=== PATIENT | male | born 1965 | race Caucasian/White ===

== ENCOUNTER 2017-05-04 09:37 | Emergency (ER) | payer SELFPAY ==
[~2017-05-04] VITALS: Ht 177.8 cm; Wt 84.0 kg
[2017-05-04] MEDS ORDERED: KETOROLAC 60MG/2ML VIAL IM ONE (10:15)
[2017-05-04 11:15] VITALS: BP 132/82
== END 2017-05-04 11:26 | disposition home or self-care (01) ==
LOC: ER 10:21
DX: M25.511 Pain in right shoulder (principal); M54.5 Low back pain; V49.9XXA Car occupant (driver) (passenger) injured in unspecified traffic accident, initial encounter; Y93.89 Activity, other specified; Y92.89 Other specified places as the place of occurrence of the external cause; Y99.8 Other external cause status
CPT/HCPCS: 73030; 96372; 99284; J1885; Z7610; A4565

== ENCOUNTER 2018-05-21 23:22 | Emergency (ER) | payer BC ==
[~2018-05-21] VITALS: Ht 177.8 cm; Wt 80.0 kg
[2018-05-22 04:17] VITALS: BP 140/87
== END 2018-05-22 04:05 | disposition home or self-care (01) ==
LOC: ER 23:22
DX: B02.9 Zoster without complications (principal)
CPT/HCPCS: 99283

== ENCOUNTER 2018-05-26 08:50 | Emergency (ER) | payer BC ==
[~2018-05-26] VITALS: Ht 160 cm; Wt 81.0 kg
[2018-05-26 13:26] VITALS: BP 132/76
== END 2018-05-26 13:32 | disposition home or self-care (01) ==
LOC: ER 08:50
DX: S41.111D Laceration without foreign body of right upper arm, subsequent encounter (principal); S61.411D Laceration without foreign body of right hand, subsequent encounter; X58.XXXD Exposure to other specified factors, subsequent encounter
CPT/HCPCS: 99281

== ENCOUNTER 2018-08-23 10:53 | Emergency (ER) | payer BC ==
[~2018-08-23] VITALS: Ht 177.8 cm; Wt 75.0 kg
[2018-08-23] MEDS ORDERED: ONDANSETRON HCL 4MG/2ML INJ IV STA (13:10)
[2018-08-23] MEDS ORDERED: SODIUM CHLORIDE 0.9% 1,000 ML IV ONE (13:10)
[2018-08-23] MEDS ORDERED: FAMOTIDINE 20MG/2ML VIAL IV STA (13:10)
[2018-08-23 14:09] LABS: CLARITY URINE CLEAR (CLEAR); COLOR URINE DARK YELLOW (YELLOW); KETONES URINE TRACE (NEGATIVE); LEUKOCYTE ESTERASE URINE NEGATIVE (NEGATIVE); NITRITE URINE NEGATIVE (NEGATIVE); OCCULT BLOOD URINE NEGATIVE (NEGATIVE); PH URINE 6.5 (4.5-8.0); PROTEIN URINE NEGATIVE (NEGATIVE); SPECIFIC GRAVITY URINE 1.012 (1.005-1.030)
[2018-08-23 14:27] LABS: *AMPHETAMINES SCREEN URINE NEGATIVE (NEGATIVE); *BARBITURATES SCREEN URINE NEGATIVE (NEGATIVE); *BENZODIAZEPINES SCREEN URINE NEGATIVE (NEGATIVE); *COCAINE SCREEN URINE NEGATIVE (NEGATIVE); CANNABINOID URINE SCREEN NEGATIVE (NEGATIVE); METHADONE URINE SCREEN NEGATIVE (NEGATIVE); OPIATES URINE SCREEN NEGATIVE (NEGATIVE); PHENCYCLIDINE URINE SCREEN NEGATIVE (NEGATIVE)
[2018-08-23 14:28] LABS: HEMOGLOBIN. 11.2 g/dL (14.0-18.0); RED BLOOD CELL COUNT 3.24 mill/uL (4.7-6.1)
[2018-08-23 14:29] LABS: HEMATOCRIT. 31.8 % (42.0-52.0); MEAN CORPUSCULAR HEMOGLOBIN 34.6 pg (28.0-32.0); MEAN CORPUSCULAR VOLUME 42.7 fL (80.0-94.0)
[2018-08-23 14:30] LABS: MEAN PLATELET VOLUME 8.9 fl (7.4-10.4)
[2018-08-23 14:44] LABS: INR 1.2; PROTHROMBIN TIME 11.7 sec (9.1-11.1)
[2018-08-23 14:54] LABS: PLATELET ESTIMATE NORMAL
[2018-08-23 14:55] LABS: PLATELET 63 x1000/uL (130-400)
[2018-08-23 15:09] LABS: CHLORIDE 104 mEq/L (98-107); ETHANOL BLOOD 77 mg/dL
[2018-08-23 16:46] VITALS: BP 135/85
== END 2018-08-23 17:40 | disposition home or self-care (01) ==
LOC: ER 10:53
DX: R11.2 Nausea with vomiting, unspecified (principal); F10.129 Alcohol abuse with intoxication, unspecified; R79.89 Other specified abnormal findings of blood chemistry; I10 Essential (primary) hypertension; Y90.3 Blood alcohol level of 60-79 mg/100 ml
CPT/HCPCS: 36415; 71045; 80053; 80305; 81003; 83690; 84484; 85025; 85610; 96361; 96374; 96375; 99285; G0482; J2405; J3490; J7030

== ENCOUNTER 2019-12-28 07:05 | Emergency (ER) | payer BC ==
[~2019-12-28] VITALS: Ht 177.8 cm; Wt 82.0 kg
[2019-12-28] MEDS ORDERED: TETANUS, DIPHTHERIA, PERTUSSIS VAC/PF 0.5ML (>7YR OLD) IM ONE (07:45)
[2019-12-28] MEDS ORDERED: HYDROCODONE/ACETAMINOPHEN 5/325MG TABLET PO ONE (07:45)
[2019-12-28] MEDS ORDERED: IBUPROFEN 600MG TABLET PO ONE (07:45)
[2019-12-28] MEDS ORDERED: CEFAZOLIN 1000MG PREMIX 50 ML IV ONE (07:45)
[2019-12-28 08:38] VITALS: BP 152/96
== END 2019-12-28 09:30 | disposition home or self-care (01) ==
LOC: ER 07:05
DX: S63.256A Unspecified dislocation of right little finger, initial encounter (principal); W22.8XXA Striking against or struck by other objects, initial encounter; Y93.89 Activity, other specified; Y92.89 Other specified places as the place of occurrence of the external cause; Y99.8 Other external cause status
CPT/HCPCS: 26770; 73120; 90471; 90715; 96365; 99284; J0690

== ENCOUNTER → 2020-01-01 | Emergency (ER) | payer BC ==
[~2020-01-01] VITALS: Ht 177.8 cm; Wt 81.7 kg
[~2020-01-01] MED LIST: BACITRACIN ZINC OINT UDPKT TOP ONE
[2020-01-01 12:40] VITALS: BP 144/87
== END | disposition home or self-care (01) ==
LOC: ER 10:41
DX: Z48.00 Encounter for change or removal of nonsurgical wound dressing (principal)
CPT/HCPCS: 99283

== ENCOUNTER 2020-01-29 07:09 | Emergency (ER) | payer BC ==
[~2020-01-29] VITALS: Ht 175.3 cm; Wt 90.0 kg
[2020-01-29] MEDS ORDERED: ONDANSETRON HCL 4MG/2ML INJ IV STA (07:59)
[2020-01-29] MEDS ORDERED: SODIUM CHLORIDE 0.9% 1,000 ML IV ONE (07:59)
[2020-01-29] MEDS ORDERED: FOLIC ACID 1 MG, THIAMINE HCL 100 MG, MVI, ADULT NO.1 10 ML in DEXTROSE 5% WATER 1,000 ML IV ONE ×4 (08:00)
[2020-01-29] MEDS ORDERED: CHLORDIAZEPOXIDE 25MG CAPSULE PO ONE (08:00)
[2020-01-29 08:29] LABS: CHLORIDE 106 mEq/L (98-107)
[2020-01-29 08:31] LABS: INR 1.2; PROTHROMBIN TIME 13.4 sec (9.6-11.0)
[2020-01-29 08:33] LABS: ETHANOL BLOOD 144 mg/dL
[2020-01-29 08:34] LABS: BASOPHILS % 1.3 % (0.0-2.0); EOSINOPHILS % 1.1 % (0.0-5.0); HEMATOCRIT. 30.5 % (42.0-52.0); HEMOGLOBIN. 10.4 g/dL (14.0-18.0); MEAN CORPUSCULAR HEMOGLOBIN 33.6 pg (28.0-32.0); MEAN CORPUSCULAR VOLUME 98.7 fL (80.0-94.0); MEAN PLATELET VOLUME 8.3 fl (7.4-10.4); MONOCYTES % 12.8 % (2.0-8.0); NEUTROPHILS % 65.8 % (40.0-76.0); PLATELET 93 x1000/uL (130-400); RED BLOOD CELL COUNT 3.09 mill/uL (4.7-6.1); RED CELL DISTRIBUTION WIDTH 14.5 % (11.6-14.6)
[2020-01-29 09:08] LABS: CLARITY URINE CLEAR (CLEAR); COLOR URINE YELLOW (YELLOW); KETONES URINE NEGATIVE (NEGATIVE); LEUKOCYTE ESTERASE URINE NEGATIVE (NEGATIVE); NITRITE URINE NEGATIVE (NEGATIVE); OCCULT BLOOD URINE NEGATIVE (NEGATIVE); PH URINE 7.5 (4.5-8.0); PROTEIN URINE NEGATIVE (NEGATIVE); SPECIFIC GRAVITY URINE 1.004 (1.005-1.030)
[2020-01-29 09:27] LABS: *BARBITURATES SCREEN URINE NEGATIVE (NEGATIVE)
[2020-01-29 09:28] LABS: *BENZODIAZEPINES SCREEN URINE NEGATIVE (NEGATIVE); *COCAINE SCREEN URINE NEGATIVE (NEGATIVE); CANNABINOID URINE SCREEN NEGATIVE (NEGATIVE); METHADONE URINE SCREEN NEGATIVE (NEGATIVE); OPIATES URINE SCREEN NEGATIVE (NEGATIVE); PHENCYCLIDINE URINE SCREEN NEGATIVE (NEGATIVE)
[2020-01-29 09:29] LABS: *AMPHETAMINES SCREEN URINE NEGATIVE (NEGATIVE)
[2020-01-29] MEDS ORDERED: POTASSIUM CHLORIDE 20MEQ TABLET SR PO ONE (09:30)
[2020-01-29 15:00] VITALS: BP 117/76
== END 2020-01-29 15:10 | disposition home or self-care (01) ==
LOC: ER 07:09
DX: F10.239 Alcohol dependence with withdrawal, unspecified (principal); Y90.6 Blood alcohol level of 120-199 mg/100 ml; R03.0 Elevated blood-pressure reading, without diagnosis of hypertension
CPT/HCPCS: 36415; 80053; 80305; 80320; 81003; 85025; 85610; 96361; 96374; 99285; J2405; J3411; J3490; J7030; J7070; G0480

== ENCOUNTER 2021-02-01 08:58 | Inpatient (IN) | payer BC ==
[~2021-02-01] VITALS: Ht 167.6 cm; Wt 78.1 kg
[2021-02-01] MEDS ORDERED: PANTOPRAZOLE SODIUM 40 MG/VIAL IV ONE (09:15)
[2021-02-01] MEDS ORDERED: OCTREOTIDE 1,000 MCG in SODIUM CHLORIDE 0.9% 100 ML IV ONE (09:15)
[2021-02-01] MEDS ORDERED: CEFTRIAXONE 1 G PREMIX 50 ML IV ONE (09:15)
[2021-02-01 09:43] LABS: MEAN CORPUSCULAR HEMOGLOBIN 22.8 pg (28.0-32.0); MEAN CORPUSCULAR VOLUME 78.1 fL (80.0-94.0); MEAN PLATELET VOLUME 8.8 fl (7.4-10.4); PLATELET 98 x1000/uL (130-400); RED BLOOD CELL COUNT 2.58 mill/uL (4.7-6.1); RED CELL DISTRIBUTION WIDTH 20.3 % (11.6-14.6)
[2021-02-01 09:47] LABS: HEMOGLOBIN. 5.9 g/dL (14.0-18.0)
[2021-02-01 09:48] LABS: CHLORIDE 94 mEq/L (98-107); HEMATOCRIT. 20.2 % (42.0-52.0); INR 1.5; PROTHROMBIN TIME 15.8 sec (9.6-11.0)
[2021-02-01 09:53] LABS: ETHANOL BLOOD 78 mg/dL
[2021-02-01] MEDS ORDERED: OCTREOTIDE ACETATE 50 MCG/ML 1ML SUBCUT NR (10:00)
[2021-02-01] MEDS ORDERED: KCL 10MEQ/50ML PREMIX 50 ML IV ONE ×2 (10:15→14:30)
[2021-02-01 10:19] LABS: NUCLEATED RED BLOOD CELLS 1 /100 WBC
[2021-02-01 10:20] LABS: PLATELET ESTIMATE SLIGHTLY DECREASED
[2021-02-01] MEDS: OCTREOTIDE 1,000 MCG in SODIUM CHLORIDE 0.9% 100 ML IV NR ×3 (10:29→10:31)
[2021-02-01] MEDS ORDERED: ACETAMINOPHEN 325MG TABLET PO PRN (11:45)
[2021-02-01] MEDS ORDERED: ONDANSETRON HCL 4MG/2ML INJ IV PRN (11:45)
[2021-02-01] MEDS ORDERED: SODIUM CHLORIDE 0.9% 1,000 ML IV SCH (11:45)
[2021-02-01] MEDS ORDERED: LORAZEPAM 2MG/ML CPJ IV PRN ×2 (11:45→16:30)
[2021-02-01] MEDS ORDERED: POTASSIUM CHLORIDE INJ 40 MEQ in DEXT 5% WATER 250 ML IV NR ×2 (11:45→16:00)
[2021-02-01] MEDS ORDERED: MULTIVITAMINS,THER W-MINERALS TABLET PO SCH (13:00)
[2021-02-01] MEDS ORDERED: FOLIC ACID 1 MG, THIAMINE HCL 100 MG in SODIUM CHLORIDE 0.9% 1,000 ML IV SCH (13:00)
[2021-02-01] MEDS ORDERED: PHYTONADIONE 10MG/ML AMP SUBCUT NR (14:00)
[2021-02-01] MEDS ORDERED: LEVETIRACETAM 500MG PREMIX 100 ML IV ONE (14:30)
[2021-02-01] MEDS ORDERED: LORAZEPAM 2MG/ML CPJ IV ONE (14:30)
[2021-02-01] MEDS ORDERED: LEVETIRACETAM 500MG PREMIX 100 ML IV SCH (14:45)
[2021-02-01 16:09] LABS: *AMPHETAMINES SCREEN URINE NEGATIVE (NEGATIVE); *BARBITURATES SCREEN URINE NEGATIVE (NEGATIVE); *BENZODIAZEPINES SCREEN URINE NEGATIVE (NEGATIVE); *COCAINE SCREEN URINE NEGATIVE (NEGATIVE); METHADONE URINE SCREEN NEGATIVE (NEGATIVE); OPIATES URINE SCREEN NEGATIVE (NEGATIVE)
[2021-02-01 16:10] LABS: CANNABINOID URINE SCREEN NEGATIVE (NEGATIVE); PHENCYCLIDINE URINE SCREEN NEGATIVE (NEGATIVE)
[2021-02-01] MEDS ORDERED: PANTOPRAZOLE SODIUM 40 MG/VIAL IV SCH (17:00)
[2021-02-01] MEDS: DEXT 5%/0.9% NACL 1,000 ML IV SCH (21:24)
[2021-02-01 22:43] LABS: HEMATOCRIT 23.1 % (42.0-52.0); HEMOGLOBIN 7.2 g/dL (14.0-18.0)
[2021-02-02] VITALS (52 sets, daily range): BP systolic 78–148; BP diastolic 48–93
[2021-02-02 03:23] LABS: CHLORIDE 104 mEq/L (98-107)
[2021-02-02 03:26] LABS: INR 1.6; PROTHROMBIN TIME 16.3 sec (9.6-11.0)
[2021-02-02] MEDS: LEVETIRACETAM 500MG PREMIX 100 ML IV SCH ×3 (03:56→20:52)
[2021-02-02] MEDS: OCTREOTIDE 1,000 MCG in SODIUM CHLORIDE 0.9% 98 ML IV SCH (03:56)
[2021-02-02] MEDS: POTASSIUM CHLORIDE INJ 40 MEQ in DEXT 5% WATER 250 ML IV SCH ×2 (05:03→11:18)
[2021-02-02 07:39] LABS: HEMATOCRIT. 26.6 % (42.0-52.0); HEMOGLOBIN. 8.3 g/dL (14.0-18.0); MEAN CORPUSCULAR HEMOGLOBIN 25.6 pg (28.0-32.0); MEAN CORPUSCULAR VOLUME 82.4 fL (80.0-94.0); MEAN PLATELET VOLUME 9.4 fl (7.4-10.4); PLATELET 57 x1000/uL (130-400); RED BLOOD CELL COUNT 3.23 mill/uL (4.7-6.1); RED CELL DISTRIBUTION WIDTH 19.3 % (11.6-14.6)
[2021-02-02] MEDS ORDERED: PHYTONADIONE 10MG/ML AMP SUBCUT NR (09:00)
[2021-02-02] MEDS: PANTOPRAZOLE SODIUM 40 MG/VIAL IV SCH ×2 (09:10→20:52)
[2021-02-02] MEDS ORDERED: MAGNESIUM 2 G PREMIX 50 ML IV NR (11:00)
[2021-02-02] MEDS: DEXT 5%/0.9% NACL 1,000 ML IV SCH ×2 (11:19→22:10)
[2021-02-02 11:56] LABS: BASOPHILS % 0.5 % (0.0-2.0); EOSINOPHILS % 0.3 % (0.0-5.0); HEMOGLOBIN. 8.1 g/dL (14.0-18.0); LYMPHOCYTES % 8.6 % (20.0-50.0); MEAN CORPUSCULAR HEMOGLOBIN 25.7 pg (28.0-32.0); MEAN CORPUSCULAR VOLUME 82.8 fL (80.0-94.0); MEAN PLATELET VOLUME 9.2 fl (7.4-10.4); MONOCYTES % 14.8 % (2.0-8.0); NEUTROPHILS % 75.8 % (40.0-76.0); PLATELET 61 x1000/uL (130-400); RED BLOOD CELL COUNT 3.14 mill/uL (4.7-6.1); RED CELL DISTRIBUTION WIDTH 19.6 % (11.6-14.6)
[2021-02-02 12:08] LABS: CHLORIDE 107 mEq/L (98-107)
[2021-02-02] MEDS ORDERED: LEVOFLOXACIN 500MG PREMIX 100 ML IV SCH (13:00)
[2021-02-02 13:19] LABS: PLATELET ESTIMATE MARKEDLY DECREASED
[2021-02-02] MEDS: METRONIDAZOLE 500 MG PREMIX 100 ML IV SCH ×2 (14:10→22:09)
[2021-02-02] MEDS: LEVOFLOXACIN 500MG PREMIX 100 ML IV SCH (15:32)
[2021-02-02 15:58] LABS: BASOPHILS % 0.3 % (0.0-2.0); EOSINOPHILS % 0.4 % (0.0-5.0); HEMATOCRIT. 25.3 % (42.0-52.0); HEMOGLOBIN. 7.9 g/dL (14.0-18.0); LYMPHOCYTES % 10.4 % (20.0-50.0); MEAN CORPUSCULAR HEMOGLOBIN 25.6 pg (28.0-32.0); MEAN CORPUSCULAR VOLUME 82.2 fL (80.0-94.0); MEAN PLATELET VOLUME 9.5 fl (7.4-10.4); MONOCYTES % 14.7 % (2.0-8.0); NEUTROPHILS % 74.2 % (40.0-76.0); PLATELET 58 x1000/uL (130-400); RED BLOOD CELL COUNT 3.08 mill/uL (4.7-6.1); RED CELL DISTRIBUTION WIDTH 19.5 % (11.6-14.6)
[2021-02-02] MEDS ORDERED: POTASSIUM CHLORIDE INJ 40 MEQ in DEXT 5% WATER 250 ML IV SCH (16:00)
[2021-02-02] MEDS ORDERED: PROPOFOL 200MG/20ML VIAL IV ONE (16:19)
[2021-02-02] MEDS ORDERED: LIDOCAINE HCL/PF 1% 10 MG/ML 5ML VIAL ONE (16:21)
[2021-02-02 17:17] LABS: INR 1.4; PROTHROMBIN TIME 14.9 sec (9.6-11.0)
[2021-02-02] MEDS ORDERED: FOLIC ACID 1 MG, THIAMINE HCL 100 MG, MVI, ADULT NO.1 10 ML in DEXTROSE 5% WATER 1,000 ML IV NR (23:30)
[2021-02-03] VITALS (45 sets, daily range): BP systolic 115–163; BP diastolic 63–101
[2021-02-03] MEDS: OCTREOTIDE 1,000 MCG in SODIUM CHLORIDE 0.9% 98 ML IV SCH ×2 (00:07→19:45)
[2021-02-03 05:31] LABS: BASOPHILS % 0.6 % (0.0-2.0); EOSINOPHILS % 0.5 % (0.0-5.0); HEMATOCRIT. 25.4 % (42.0-52.0); HEMOGLOBIN. 7.8 g/dL (14.0-18.0); LYMPHOCYTES % 14.6 % (20.0-50.0); MEAN CORPUSCULAR HEMOGLOBIN 25.4 pg (28.0-32.0); MEAN CORPUSCULAR VOLUME 82.6 fL (80.0-94.0); MONOCYTES % 12.3 % (2.0-8.0); PLATELET 54 x1000/uL (130-400); RED BLOOD CELL COUNT 3.08 mill/uL (4.7-6.1); RED CELL DISTRIBUTION WIDTH 19.2 % (11.6-14.6)
[2021-02-03 05:36] LABS: CHLORIDE 110 mEq/L (98-107)
[2021-02-03 05:38] LABS: INR 1.4; PROTHROMBIN TIME 14.4 sec (9.6-11.0)
[2021-02-03] MEDS: METRONIDAZOLE 500 MG PREMIX 100 ML IV SCH ×3 (05:41→21:44)
[2021-02-03] MEDS: LEVETIRACETAM 500MG PREMIX 100 ML IV SCH ×2 (08:54→21:43)
[2021-02-03] MEDS: PANTOPRAZOLE SODIUM 40 MG/VIAL IV SCH ×2 (08:55→21:43)
[2021-02-03] MEDS ORDERED: MAGNESIUM 2 G PREMIX 50 ML IV SCH (11:00)
[2021-02-03] MEDS ORDERED: POTASSIUM CHLORIDE INJ 40 MEQ in DEXT 5% WATER 250 ML IV SCH (11:00)
[2021-02-03] MEDS: LEVOFLOXACIN 500MG PREMIX 100 ML IV SCH (15:45)
[2021-02-04] VITALS (45 sets, daily range): BP systolic 101–160; BP diastolic 53–114
[2021-02-04 05:29] LABS: BASOPHILS % 1.2 % (0.0-2.0); EOSINOPHILS % 1.7 % (0.0-5.0); HEMATOCRIT. 25.3 % (42.0-52.0); HEMOGLOBIN. 7.8 g/dL (14.0-18.0); LYMPHOCYTES % 19.5 % (20.0-50.0); MEAN CORPUSCULAR HEMOGLOBIN 25.4 pg (28.0-32.0); MEAN CORPUSCULAR VOLUME 82.6 fL (80.0-94.0); MEAN PLATELET VOLUME 8.7 fl (7.4-10.4); MONOCYTES % 13.8 % (2.0-8.0); NEUTROPHILS % 63.8 % (40.0-76.0); PLATELET 61 x1000/uL (130-400); RED BLOOD CELL COUNT 3.07 mill/uL (4.7-6.1); RED CELL DISTRIBUTION WIDTH 19.7 % (11.6-14.6)
[2021-02-04 05:30] LABS: CHLORIDE 108 mEq/L (98-107); INR 1.3
[2021-02-04] MEDS: METRONIDAZOLE 500 MG PREMIX 100 ML IV SCH ×3 (06:15→21:12)
[2021-02-04] MEDS ORDERED: MAGNESIUM 4 G PREMIX 100 ML IV NR ×3 (09:30→21:30)
[2021-02-04] MEDS: PANTOPRAZOLE SODIUM 40 MG/VIAL IV SCH ×2 (09:31→21:10)
[2021-02-04] MEDS: PROPRANOLOL HCL 10MG TABLET PO SCH (09:31)
[2021-02-04] MEDS: LEVETIRACETAM 500MG PREMIX 100 ML IV SCH ×2 (09:32→21:10)
[2021-02-04] MEDS ORDERED: MAGNESIUM 2 G PREMIX 50 ML IV NR (10:00)
[2021-02-04] MEDS ORDERED: POTASSIUM CHLORIDE INJ 40 MEQ in DEXT 5% WATER 250 ML IV NR ×2 (11:00→16:00)
[2021-02-04] MEDS ORDERED: METR500T MT ×2 (13:55)
[2021-02-04] MEDS ORDERED: CIPR-263 MT ×2 (13:55)
[2021-02-04] MEDS ORDERED: KEPP500 MT ×2 (13:55)
[2021-02-04] MEDS ORDERED: PANT40TA51 MT ×2 (13:55)
[2021-02-04] MEDS ORDERED: DISU500T3 MT ×2 (13:55)
[2021-02-04] MEDS ORDERED: PROP10TA10 PO ×2 (13:55)
[2021-02-04] MEDS: LEVOFLOXACIN 500MG PREMIX 100 ML IV SCH (14:37)
[2021-02-04 19:31] LABS: PHOSPHORUS 1.5 mg/dL (2.5-4.9)
[2021-02-04] MEDS ORDERED: SODIUM PHOS,M-BASIC-D-BASIC 15 MM in DEXT 5% WATER 245 ML IV NR (23:00)
[2021-02-05] VITALS (45 sets, daily range): BP systolic 89–176; BP diastolic 24–96
[2021-02-05 05:41] LABS: HEMATOCRIT. 28.4 % (42.0-52.0); HEMOGLOBIN. 8.7 g/dL (14.0-18.0); MEAN CORPUSCULAR VOLUME 84.8 fL (80.0-94.0); MEAN PLATELET VOLUME 8.3 fl (7.4-10.4); RED BLOOD CELL COUNT 3.35 mill/uL (4.7-6.1); RED CELL DISTRIBUTION WIDTH 20.3 % (11.6-14.6)
[2021-02-05 05:46] LABS: CHLORIDE 107 mEq/L (98-107)
[2021-02-05 05:51] LABS: PHOSPHORUS 2.3 mg/dL (2.5-4.9)
[2021-02-05] MEDS: METRONIDAZOLE 500 MG PREMIX 100 ML IV SCH ×3 (06:30→21:31)
[2021-02-05] MEDS: LEVETIRACETAM 500MG PREMIX 100 ML IV SCH ×2 (08:34→21:30)
[2021-02-05] MEDS: PANTOPRAZOLE SODIUM 40 MG/VIAL IV SCH ×2 (08:34→21:31)
[2021-02-05] MEDS: PROPRANOLOL HCL 10MG TABLET PO SCH (08:34)
[2021-02-05 09:19] LABS: PLATELET 70 x1000/uL (130-400); PLATELET ESTIMATE DECREASED
[2021-02-05] MEDS: LEVOFLOXACIN 500MG PREMIX 100 ML IV SCH (15:00)
[2021-02-06] VITALS (23 sets, daily range): BP systolic 112–194; BP diastolic 66–93
[2021-02-06] MEDS: METRONIDAZOLE 500 MG PREMIX 100 ML IV SCH (05:20)
[2021-02-06 05:40] LABS: HEMATOCRIT. 28.2 % (42.0-52.0); HEMOGLOBIN. 8.6 g/dL (14.0-18.0); MEAN CORPUSCULAR HEMOGLOBIN 25.6 pg (28.0-32.0); MEAN PLATELET VOLUME 8.7 fl (7.4-10.4); PLATELET 96 x1000/uL (130-400); RED BLOOD CELL COUNT 3.35 mill/uL (4.7-6.1); RED CELL DISTRIBUTION WIDTH 21.1 % (11.6-14.6)
[2021-02-06 05:42] LABS: CHLORIDE 108 mEq/L (98-107)
[2021-02-06] MEDS: PANTOPRAZOLE SODIUM 40 MG/VIAL IV SCH (08:23)
[2021-02-06] MEDS: LEVETIRACETAM 500MG PREMIX 100 ML IV SCH (08:23)
[2021-02-06] MEDS: PROPRANOLOL HCL 10MG TABLET PO SCH (08:23)
[2021-02-06] MEDS ORDERED: MAGNESIUM GLUCONATE 500MG TABLET PO SCH (09:00)
[2021-02-06 09:58] LABS: PLATELET ESTIMATE DECREASED
[2021-02-06] MEDS ORDERED: MAGN400C MT (14:39)
== END 2021-02-06 11:15 | disposition home or self-care (01) | DRG 871 ==
LOC: ER 09:15 → EDBEDREQTM 11:01 → EDBEDREQSVC 14:34 → ENRESERV 23:10 → CVICU 02-02 00:09
PROVIDERS: ADMIT Family Medicine Adult Medicine; ATTEND Family Medicine Adult Medicine
PROC: 06HY33Z Insertion of Infusion Device into Lower Vein, Percutaneous Approach (ICD-10-PCS; 2021-02-01)
PROC: 30233N1 Transfusion of Nonautologous Red Blood Cells into Peripheral Vein, Percutaneous Approach (ICD-10-PCS; 2021-02-01)
PROC: 06L38CZ Occlusion of Esophageal Vein with Extraluminal Device, Via Natural or Artificial Opening Endoscopic (ICD-10-PCS; 2021-02-02)
PROC: 30233K1 Transfusion of Nonautologous Frozen Plasma into Peripheral Vein, Percutaneous Approach (ICD-10-PCS; 2021-02-02)
PROC: 4A10X4Z Monitoring of Central Nervous Electrical Activity, External Approach (ICD-10-PCS; principal; 2021-02-03)
DX: A41.9 Sepsis, unspecified organism (principal); I85.11 Secondary esophageal varices with bleeding; K85.90 Acute pancreatitis without necrosis or infection, unspecified; E43 Unspecified severe protein-calorie malnutrition; K72.00 Acute and subacute hepatic failure without coma; D62 Acute posthemorrhagic anemia; E87.1 Hypo-osmolality and hyponatremia; K76.6 Portal hypertension; K57.92 Diverticulitis of intestine, part unspecified, without perforation or abscess without bleeding; G93.40 Encephalopathy, unspecified; E87.2 Acidosis; F10.139 Alcohol abuse with withdrawal, unspecified; K70.30 Alcoholic cirrhosis of liver without ascites; D69.59 Other secondary thrombocytopenia; E66.9 Obesity, unspecified; E83.51 Hypocalcemia; E83.42 Hypomagnesemia; E87.6 Hypokalemia; N40.0 Benign prostatic hyperplasia without lower urinary tract symptoms; K80.20 Calculus of gallbladder without cholecystitis without obstruction; E87.8 Other disorders of electrolyte and fluid balance, not elsewhere classified; R56.9 Unspecified convulsions; Y90.3 Blood alcohol level of 60-79 mg/100 ml; R62.7 Adult failure to thrive; K31.89 Other diseases of stomach and duodenum; K76.0 Fatty (change of) liver, not elsewhere classified; R16.1 Splenomegaly, not elsewhere classified; I34.0 Nonrheumatic mitral (valve) insufficiency; F10.129 Alcohol abuse with intoxication, unspecified; Z79.899 Other long term (current) drug therapy; Z20.822 Contact with and (suspected) exposure to COVID-19; Z68.27 Body mass index [BMI] 27.0-27.9, adult
CPT/HCPCS: 36415; 71045; 74177; 76700; 80053; 80061; 80305; 80320; 82270; 82330; 83605; 83735; 84100; 84132; 84484; 85014; 85018; 85025; 85384; 86850; 86900; 86920; 86927; 87426; 93005; 93306; 93970; 95816; 97161; 97166; 99291; C9113; J0696; J1953; J1956; J2060; J2354; J2704; J3411; J3430; J3475; J3480; J3490; J7030; J7040; J7042; J7050; J7060; J7070; P9016; P9017; Q9967; G0480

== ENCOUNTER → 2021-03-17 | Outpatient (CLI) | payer BC ==
[~2021-03-17] MED LIST changes: -BACITRACIN ZINC OINT UDPKT TOP ONE; +CIPR-263 MT; +DISU500T3 MT; +FERR325T6 PO; +KEPP500 MT; +MAGN400C MT; +METR500T MT; +PANT40TA51 MT; +PROP10TA10 PO
== END | disposition home or self-care (01) ==
LOC: LAB 15:14
PROVIDERS: ATTEND Internal Medicine Gastroenterology
DX: Z01.812 Encounter for preprocedural laboratory examination (principal); Z20.822 Contact with and (suspected) exposure to COVID-19
CPT/HCPCS: 87426

== ENCOUNTER → 2021-03-18 | Day surgery (SDC) | payer BC ==
[~2021-03-18] VITALS: Ht 167.6 cm; Wt 78.0 kg
[~2021-03-18] MED LIST changes: +SODIUM CHLORIDE 0.9% 1,000 ML IV SCH
== END | disposition home or self-care (01) ==
LOC: OR 06:45
PROVIDERS: ATTEND Internal Medicine Gastroenterology
DX: K70.30 Alcoholic cirrhosis of liver without ascites (principal); I85.00 Esophageal varices without bleeding; K26.9 Duodenal ulcer, unspecified as acute or chronic, without hemorrhage or perforation; K44.9 Diaphragmatic hernia without obstruction or gangrene; K29.50 Unspecified chronic gastritis without bleeding; K31.89 Other diseases of stomach and duodenum; K76.6 Portal hypertension; F10.10 Alcohol abuse, uncomplicated; Z79.899 Other long term (current) drug therapy; Z98.890 Other specified postprocedural states
CPT/HCPCS: 43239; J2704

== ENCOUNTER 2022-04-18 10:58 | Inpatient (IN) | payer BC, MEDICAID ==
[~2022-04-18] VITALS: Ht 175.3 cm; Wt 78.5 kg
[~2022-04-18 10:58] MED LIST changes: -CIPR-263 MT; -DISU500T3 MT; -METR500T MT; -PANT40TA51 MT; -SODIUM CHLORIDE 0.9% 1,000 ML IV SCH; +[UNRECOGNIZED DRUG - CODE] MT
[2022-04-18] MEDS ORDERED: KETOROLAC 15MG/ML VIAL IV ONE (11:45)
[2022-04-18 14:21] LABS: BASOPHILS % 1.6 % (0.0-2.0); EOSINOPHILS % 0.6 % (0.0-5.0); LYMPHOCYTES % 23.9 % (20.0-50.0); MEAN CORPUSCULAR VOLUME 75.7 fL (80.0-94.0); MEAN PLATELET VOLUME 8.8 fl (7.4-10.4); MONOCYTES % 14.9 % (2.0-8.0); PLATELET 56 x1000/uL (130-400); RED BLOOD CELL COUNT 2.07 mill/uL (4.7-6.1); RED CELL DISTRIBUTION WIDTH 21.2 % (11.6-14.6)
[2022-04-18 14:26] LABS: CHLORIDE 102 mEq/L (98-107)
[2022-04-18 14:29] LABS: INR 2.1; PARTIAL THROMBOPLASTIN TIME 42.7 sec (23.4-31.0); PROTHROMBIN TIME 20.9 sec (9.6-11.0)
[2022-04-18 14:34] LABS: HEMATOCRIT. 15.7 % (42.0-52.0); HEMOGLOBIN. 4.3 g/dL (14.0-18.0)
[2022-04-18] MEDS ORDERED: CEFTRIAXONE 1 G PREMIX 50 ML IV ONE (15:00)
[2022-04-18] MEDS: PANTOPRAZOLE SODIUM 40 MG/VIAL IV SCH (17:38)
[2022-04-18 17:48] LABS: TOTAL IRON BINDING CAPACITY 287 ug/dL (250-450)
[2022-04-18] MEDS: SODIUM CHLORIDE 0.9% 1,000 ML IV SCH (17:52)
[2022-04-18 18:14] LABS: FOLIC ACID (FOLATE) SERUM 9.7 ng/mL (>5.38)
[2022-04-18] MEDS ORDERED: POTASSIUM CHLORIDE 10MEQ TABLET SR PO NR (18:15)
[2022-04-18 19:30] VITALS: BP 132/79
[2022-04-18 23:05] VITALS: BP 129/72
[2022-04-18 23:26] VITALS: BP 118/64
[2022-04-19] VITALS (17 sets, daily range): BP systolic 124–159; BP diastolic 64–89
[2022-04-19] MEDS: PANTOPRAZOLE SODIUM 40 MG/VIAL IV SCH ×2 (05:21→18:22)
[2022-04-19] MEDS: SODIUM CHLORIDE 0.9% 1,000 ML IV SCH ×2 (05:23→20:25)
[2022-04-19 07:27] LABS: CHLORIDE 110 mEq/L (98-107)
[2022-04-19 07:28] LABS: BASOPHILS % 1.6 % (0.0-2.0); EOSINOPHILS % 0.8 % (0.0-5.0); LYMPHOCYTES % 15.6 % (20.0-50.0); MEAN CORPUSCULAR HEMOGLOBIN 23.5 pg (28.0-32.0); MEAN PLATELET VOLUME 8.6 fl (7.4-10.4); MONOCYTES % 14.5 % (2.0-8.0); NEUTROPHILS % 67.5 % (40.0-76.0); RED BLOOD CELL COUNT 2.38 mill/uL (4.7-6.1); RED CELL DISTRIBUTION WIDTH 20.7 % (11.6-14.6)
[2022-04-19 07:36] LABS: AMYLASE 207 IU/L (25-115)
[2022-04-19 07:39] LABS: HEMOGLOBIN. 5.6 g/dL (14.0-18.0)
[2022-04-19 07:40] LABS: HEMATOCRIT. 18.6 % (42.0-52.0)
[2022-04-19 10:31] LABS: PLATELET 37 x1000/uL (130-400)
[2022-04-19] MEDS: IRON SUCROSE COMPLEX 100 MG/5 ML ML IV SCH (18:22)
[2022-04-19 19:56] LABS: HEMATOCRIT 26.4 % (42.0-52.0); HEMOGLOBIN 8.2 g/dL (14.0-18.0)
[2022-04-19] MEDS: CARVEDILOL 3.125 MG TABLET PO SCH (20:45)
[2022-04-20 00:38] VITALS: BP 142/84
[2022-04-20 04:00] VITALS: BP 128/77
[2022-04-20] MEDS: PANTOPRAZOLE SODIUM 40 MG/VIAL IV SCH ×2 (06:05→16:54)
[2022-04-20 07:12] LABS: BASOPHILS % 1.1 % (0.0-2.0); EOSINOPHILS % 1.3 % (0.0-5.0); HEMATOCRIT. 26.6 % (42.0-52.0); HEMOGLOBIN. 8.4 g/dL (14.0-18.0); LYMPHOCYTES % 16.1 % (20.0-50.0); MEAN CORPUSCULAR HEMOGLOBIN 25.1 pg (28.0-32.0); MEAN CORPUSCULAR VOLUME 79.5 fL (80.0-94.0); MEAN PLATELET VOLUME 8.9 fl (7.4-10.4); MONOCYTES % 12.9 % (2.0-8.0); NEUTROPHILS % 68.6 % (40.0-76.0); RED BLOOD CELL COUNT 3.35 mill/uL (4.7-6.1); RED CELL DISTRIBUTION WIDTH 19.6 % (11.6-14.6)
[2022-04-20 07:30] LABS: AMYLASE 198 IU/L (25-115); CHLORIDE 104 mEq/L (98-107)
[2022-04-20 07:52] VITALS: BP 130/83
[2022-04-20] MEDS: CARVEDILOL 3.125 MG TABLET PO SCH (08:14)
[2022-04-20] MEDS: SODIUM CHLORIDE 0.9% 1,000 ML IV SCH (09:42)
[2022-04-20] MEDS ORDERED: DEXT 5%/0.9% NACL 1,000 ML IV SCH (10:45)
[2022-04-20 11:21] VITALS: BP 132/73
[2022-04-20] MEDS ORDERED: PHYTONADIONE 10MG/ML AMP SUBCUT SCH (12:30)
[2022-04-20 13:46] LABS: PLATELET 40 x1000/uL (130-400)
[2022-04-20] MEDS ORDERED: LACTULOSE 20G/30ML UDC PO SCH (14:00)
[2022-04-20 16:18] VITALS: BP 120/72
[2022-04-20] MEDS: IRON SUCROSE COMPLEX 100 MG/5 ML ML IV SCH (16:54)
[2022-04-20 18:18] LABS: HEPATITIS B SURFACE ANTIGEN NEGATIVE
== END 2022-04-20 17:45 | disposition home or self-care (01) | DRG 244 ==
LOC: ER 11:14 → 7WST 15:24 → ENRESERV 17:02
PROVIDERS: ADMIT Internal Medicine; ATTEND Internal Medicine
PROC: 30233N1 Transfusion of Nonautologous Red Blood Cells into Peripheral Vein, Percutaneous Approach (ICD-10-PCS; principal; 2022-04-18)
DX: K57.31 Diverticulosis of large intestine without perforation or abscess with bleeding (principal); D61.818 Other pancytopenia; D68.9 Coagulation defect, unspecified; E87.1 Hypo-osmolality and hyponatremia; K70.31 Alcoholic cirrhosis of liver with ascites; K76.6 Portal hypertension; K64.9 Unspecified hemorrhoids; E87.6 Hypokalemia; D50.0 Iron deficiency anemia secondary to blood loss (chronic); R16.1 Splenomegaly, not elsewhere classified; K42.9 Umbilical hernia without obstruction or gangrene; K40.90 Unilateral inguinal hernia, without obstruction or gangrene, not specified as recurrent; K80.20 Calculus of gallbladder without cholecystitis without obstruction
CPT/HCPCS: 36415; 74176; 76700; 80048; 80053; 80076; 82140; 82150; 82248; 82270; 82607; 82728; 82746; 83540; 83550; 85014; 85018; 85025; 85044; 86705; 86709; 86803; 86850; 86900; 86920; 87340; 93005; 99291; C9113; J0696; J1885; J3430; P9016

== ENCOUNTER 2022-04-21 03:20 | Emergency (ER) | payer MEDICAID ==
[~2022-04-21] VITALS: Ht 177.8 cm; Wt 82.0 kg
[2022-04-21 03:27] VITALS: BP 168/92
== END 2022-04-21 06:41 | disposition left against medical advice (07) ==
LOC: ER 03:20
DX: Z53.21 Procedure and treatment not carried out due to patient leaving prior to being seen by health care provider (principal)

== ENCOUNTER 2022-04-23 12:36 | Emergency (ER) | payer MEDICAID ==
[~2022-04-23] VITALS: Ht 177.8 cm; Wt 82.0 kg
[2022-04-23] MEDS ORDERED: KETOROLAC 15MG/ML VIAL IV ONE (13:00)
[2022-04-23 13:17] VITALS: BP 134/73
[2022-04-23 13:33] LABS: HEMATOCRIT. 32.2 % (42.0-52.0); HEMOGLOBIN. 9.9 g/dL (14.0-18.0); MEAN CORPUSCULAR HEMOGLOBIN 26.1 pg (28.0-32.0); MEAN CORPUSCULAR VOLUME 85.1 fL (80.0-94.0); MEAN PLATELET VOLUME 9.1 fl (7.4-10.4); PLATELET 63 x1000/uL (130-400); RED BLOOD CELL COUNT 3.78 mill/uL (4.7-6.1); RED CELL DISTRIBUTION WIDTH 20.7 % (11.6-14.6)
[2022-04-23 13:39] LABS: CHLORIDE 106 mEq/L (98-107)
[2022-04-23 13:42] LABS: INR 2.1; PROTHROMBIN TIME 20.9 sec (9.6-11.0)
[2022-04-23 14:07] LABS: PLATELET ESTIMATE DECREASED
[2022-04-23] MEDS ORDERED: CIPR-263 MT (16:05)
[2022-04-23] MEDS ORDERED: METR-167 MT (16:05)
== END 2022-04-23 16:14 | disposition home or self-care (01) ==
LOC: ER 12:45
DX: K57.92 Diverticulitis of intestine, part unspecified, without perforation or abscess without bleeding (principal); R18.8 Other ascites; I10 Essential (primary) hypertension; F10.229 Alcohol dependence with intoxication, unspecified; Y90.0 Blood alcohol level of less than 20 mg/100 ml; Z79.899 Other long term (current) drug therapy
CPT/HCPCS: 36415; 74176; 80053; 83690; 85025; 85610; 96374; 99284; J1885

== ENCOUNTER 2022-08-17 00:06 | Emergency (ER) | payer MEDICAID ==
[~2022-08-17] VITALS: Ht 180.3 cm; Wt 73.0 kg
[~2022-08-17 00:06] MED LIST changes: +CIPR-263 MT; +METR-167 MT
[2022-08-17] MEDS ORDERED: ASPIRIN 81MG TABLET PO ONE (00:30)
[2022-08-17] MEDS ORDERED: NITROGLYCERIN 0.4MG TABLET SL SL PRN (00:30)
[2022-08-17 00:45] LABS: BASOPHILS % 0.5 % (0.0-2.0); EOSINOPHILS % 2.6 % (0.0-5.0); HEMATOCRIT. 30.3 % (42.0-52.0); LYMPHOCYTES % 21.2 % (20.0-50.0); MEAN CORPUSCULAR HEMOGLOBIN 35.9 pg (28.0-32.0); MEAN CORPUSCULAR VOLUME 108.8 fL (80.0-94.0); MEAN PLATELET VOLUME 9.2 fl (7.4-10.4); MONOCYTES % 12.2 % (2.0-8.0); NEUTROPHILS % 63.5 % (40.0-76.0); PLATELET 73 x1000/uL (130-400); RED BLOOD CELL COUNT 2.78 mill/uL (4.7-6.1); RED CELL DISTRIBUTION WIDTH 18.1 % (11.6-14.6)
[2022-08-17 00:52] LABS: CHLORIDE 104 mEq/L (98-107)
[2022-08-17] MEDS ORDERED: POTASSIUM CHLORIDE 20MEQ TABLET SR PO NR (02:15)
[2022-08-17] MEDS ORDERED: LACTULOSE 20G/30ML UDC PO NR (04:15)
[2022-08-17 04:31] VITALS: BP 103/70
== END 2022-08-17 04:43 | disposition home or self-care (01) ==
LOC: ER 00:10
DX: R07.89 Other chest pain (principal); E87.6 Hypokalemia; I10 Essential (primary) hypertension; K70.30 Alcoholic cirrhosis of liver without ascites
CPT/HCPCS: 36415; 71045; 80053; 82140; 83880; 84484; 85025; 93005; 99285

== ENCOUNTER 2023-01-03 18:43 | Inpatient (IN) | payer MEDICAID, OTHER ==
[~2023-01-03] VITALS: Ht 177.8 cm; Wt 81.4 kg
[2023-01-03 19:38] LABS: HEMATOCRIT. 33.9 % (42.0-52.0); HEMOGLOBIN. 11.6 g/dL (14.0-18.0); MEAN CORPUSCULAR HEMOGLOBIN 33.6 pg (28.0-32.0); MEAN CORPUSCULAR VOLUME 98.3 fL (80.0-94.0); MEAN PLATELET VOLUME 8.1 fl (7.4-10.4); PLATELET 58 x1000/uL (130-400); RED BLOOD CELL COUNT 3.44 mill/uL (4.7-6.1); RED CELL DISTRIBUTION WIDTH 15.4 % (11.6-14.6)
[2023-01-03 19:45] LABS: CHLORIDE 93 mEq/L (98-107)
[2023-01-03 19:47] LABS: INR 2.3; PROTHROMBIN TIME 23.2 sec (9.6-11.0)
[2023-01-03 20:21] LABS: PLATELET ESTIMATE DECREASED
[2023-01-03] MEDS ORDERED: POTASSIUM CHLORIDE INJ 40 MEQ in DEXT 5% WATER 500 ML IV ONE (20:45)
[2023-01-03] MEDS ORDERED: POTASSIUM CHLORIDE 20MEQ TABLET SR PO ONE (20:45)
[2023-01-03] MEDS ORDERED: POTASSIUM CHLORIDE 20MEQ TABLET SR PO NR (23:45)
[2023-01-04] MEDS ORDERED: ONDANSETRON HCL 4MG/2ML INJ IV PRN (01:15)
[2023-01-04] MEDS ORDERED: MAGNESIUM/ALUMINUM HYDROXIDE/SIMETHICONE 30ML UDC PO PRN (01:15)
[2023-01-04] MEDS ORDERED: DOCUSATE SODIUM 100MG CAPSULE PO PRN (01:15)
[2023-01-04] MEDS ORDERED: FOLIC ACID 1 MG, THIAMINE HCL 100 MG, MVI, ADULT NO.1 10 ML in DEXTROSE 5% WATER 1,000 ML IV ONE ×4 (02:00)
[2023-01-04 04:33] LABS: BASOPHILS % 0.9 % (0.0-2.0); EOSINOPHILS % 1.4 % (0.0-5.0); HEMATOCRIT. 31.1 % (42.0-52.0); HEMOGLOBIN. 10.9 g/dL (14.0-18.0); LYMPHOCYTES % 20.2 % (20.0-50.0); MEAN CORPUSCULAR HEMOGLOBIN 34.5 pg (28.0-32.0); MEAN CORPUSCULAR VOLUME 98.6 fL (80.0-94.0); MEAN PLATELET VOLUME 7.9 fl (7.4-10.4); MONOCYTES % 15.4 % (2.0-8.0); NEUTROPHILS % 62.1 % (40.0-76.0); RED BLOOD CELL COUNT 3.15 mill/uL (4.7-6.1); RED CELL DISTRIBUTION WIDTH 14.9 % (11.6-14.6)
[2023-01-04 04:34] LABS: CHLORIDE 96 mEq/L (98-107)
[2023-01-04 04:36] LABS: INR 2.4; PROTHROMBIN TIME 24.2 sec (9.6-11.0)
[2023-01-04 04:47] LABS: PLATELET 45 x1000/uL (130-400)
[2023-01-04] MEDS: PANTOPRAZOLE 40MG DR TABLET PO SCH (06:54)
[2023-01-04] MEDS ORDERED: PHYTONADIONE 10 MG in DEXTROSE 5% WATER 50 ML IV SCH (09:00)
[2023-01-04] MEDS: PROPRANOLOL HCL 10MG TABLET PO SCH (10:56)
[2023-01-04] MEDS: PHYTONADIONE 10MG/ML AMP SUBCUT SCH (10:57)
[2023-01-04] MEDS: LEVETIRACETAM 500MG TABLET PO SCH ×2 (10:57→18:48)
[2023-01-04 11:38] VITALS: BP 128/80
[2023-01-04 11:52] LABS: PHOSPHORUS 2.9 mg/dL (2.5-4.9)
[2023-01-04 12:00] VITALS: BP 124/80
[2023-01-04] MEDS ORDERED: MAGNESIUM 4 G PREMIX 100 ML IV NR (12:30)
[2023-01-04] MEDS ORDERED: POTASSIUM CHLORIDE 20MEQ TABLET SR PO NR (13:00)
[2023-01-04] MEDS: FUROSEMIDE 100MG/10ML VIAL IVP SCH (13:23)
[2023-01-04 14:55] LABS: CLARITY URINE CLEAR (CLEAR); COLOR URINE YELLOW (YELLOW); KETONES URINE NEGATIVE (NEGATIVE); LEUKOCYTE ESTERASE URINE NEGATIVE (NEGATIVE); NITRITE URINE NEGATIVE (NEGATIVE); OCCULT BLOOD URINE NEGATIVE (NEGATIVE); PH URINE 8.5 (4.5-8.0); PROTEIN URINE NEGATIVE (NEGATIVE); SPECIFIC GRAVITY URINE 1.007 (1.005-1.030)
[2023-01-04 16:00] VITALS: BP 114/77
[2023-01-04 20:00] VITALS: BP 103/64
[2023-01-04 20:30] LABS: FOLIC ACID (FOLATE) SERUM 9.5 ng/mL (>5.38)
[2023-01-05] VITALS (14 sets, daily range): BP systolic 104–116; BP diastolic 62–71
[2023-01-05] MEDS: PROPRANOLOL HCL 10MG TABLET PO SCH (08:30)
[2023-01-05] MEDS: FUROSEMIDE 100MG/10ML VIAL IVP SCH (08:30)
[2023-01-05] MEDS: LEVETIRACETAM 500MG TABLET PO SCH ×3 (08:31→17:52)
[2023-01-05] MEDS: PANTOPRAZOLE 40MG DR TABLET PO SCH (08:31)
[2023-01-05] MEDS ORDERED: MAGNESIUM OXIDE 400MG TABLET PO SCH (09:00)
[2023-01-05] MEDS ORDERED: SPIRONOLACTONE 50MG TABLET PO SCH (09:00)
[2023-01-05] MEDS ORDERED: POTASSIUM CHLORIDE 20MEQ TABLET SR PO SCH (09:00)
[2023-01-05] MEDS: PHYTONADIONE 10MG/ML AMP SUBCUT SCH (10:05)
[2023-01-05] MEDS ORDERED: SODIUM BICARBONATE 4% (2.4MEQ) 5ML VIAL IV ONE (10:51)
[2023-01-05] MEDS ORDERED: LIDOCAINE HCL 1% 30ML VIAL (10MG/ML) ONE (10:51)
[2023-01-05] MEDS ORDERED: DIPHENHYDRAMINE 25MG CAPSULE PO PRN (11:15)
[2023-01-05 15:10] LABS: BASOPHILS % 1.1 % (0.0-2.0); EOSINOPHILS % 2.2 % (0.0-5.0); HEMOGLOBIN. 11.2 g/dL (14.0-18.0); LYMPHOCYTES % 14.6 % (20.0-50.0); MEAN CORPUSCULAR HEMOGLOBIN 34.6 pg (28.0-32.0); MEAN CORPUSCULAR VOLUME 102.3 fL (80.0-94.0); MEAN PLATELET VOLUME 8.2 fl (7.4-10.4); MONOCYTES % 14.4 % (2.0-8.0); NEUTROPHILS % 67.7 % (40.0-76.0); PLATELET 61 x1000/uL (130-400); RED BLOOD CELL COUNT 3.23 mill/uL (4.7-6.1); RED CELL DISTRIBUTION WIDTH 15.9 % (11.6-14.6)
[2023-01-05 15:22] LABS: CHLORIDE 100 mEq/L (98-107)
[2023-01-05 15:28] LABS: PHOSPHORUS 2.3 mg/dL (2.5-4.9)
[2023-01-05] MEDS ORDERED: FURO-151 MT (16:36)
[2023-01-05] MEDS ORDERED: SPIR50TA5 MT (16:36)
== END 2023-01-05 18:00 | disposition home or self-care (01) | DRG 280 ==
LOC: ER 18:43 → MICUSO 01-04 01:19 → EDBEDREQ 01-04 02:35 → 6EST 01-04 09:45
PROVIDERS: ADMIT Internal Medicine Pulmonary Disease; ATTEND Internal Medicine Pulmonary Disease
PROC: 0W9G3ZZ Drainage of Peritoneal Cavity, Percutaneous Approach (ICD-10-PCS; principal; 2023-01-05)
PROC: 30233K1 Transfusion of Nonautologous Frozen Plasma into Peripheral Vein, Percutaneous Approach (ICD-10-PCS; 2023-01-05)
PROC: 30233R1 Transfusion of Nonautologous Platelets into Peripheral Vein, Percutaneous Approach (ICD-10-PCS; 2023-01-05)
DX: K70.31 Alcoholic cirrhosis of liver with ascites (principal); E43 Unspecified severe protein-calorie malnutrition; D61.818 Other pancytopenia; Z76.82 Awaiting organ transplant status; D68.9 Coagulation defect, unspecified; E87.1 Hypo-osmolality and hyponatremia; G90.8 Other disorders of autonomic nervous system; E83.42 Hypomagnesemia; K57.90 Diverticulosis of intestine, part unspecified, without perforation or abscess without bleeding; E87.6 Hypokalemia; F10.21 Alcohol dependence, in remission; Z20.822 Contact with and (suspected) exposure to COVID-19; I10 Essential (primary) hypertension; Z82.49 Family history of ischemic heart disease and other diseases of the circulatory system; Z68.25 Body mass index [BMI] 25.0-25.9, adult; Z79.2 Long term (current) use of antibiotics; Z79.899 Other long term (current) drug therapy; Z71.41 Alcohol abuse counseling and surveillance of alcoholic
CPT/HCPCS: 36415; 49083; 74176; 80048; 80053; 81003; 82607; 82746; 83735; 84100; 84443; 85025; 86850; 86900; 86927; 87426; 93005; 97116; 97162; 99285; J1940; J3411; J3430; J3475; J3480; J3490; J7060; J7070; P9017; P9034

== ENCOUNTER 2023-10-11 02:59 | Emergency (ER) | payer OTHER, MEDICAID ==
[~2023-10-11 02:59] MED LIST changes: -CIPR-263 MT; +DISU500T10 MT; +FURO-151 MT; -KEPP500 MT; +SPIR50TA5 MT; -[UNRECOGNIZED DRUG - CODE] MT
[2023-10-11 03:09] VITALS: PULSE 118; RESP 18
== END 2023-10-11 05:13 | disposition left against medical advice (07) ==
LOC: ER 02:59
DX: Z53.21 Procedure and treatment not carried out due to patient leaving prior to being seen by health care provider (principal)
CPT/HCPCS: 99281